=== PATIENT | male | born 1960 | race Caucasian/White ===

== ENCOUNTER → 2017-02-11 | Outpatient (CLI) | payer OTHER ==
[~2017-02-11] MED LIST: AMITRIPTYLINE H25 MG PO; ATORVASTATIN CA10 MG PO; BACLOFEN10 MG PO; GABAPENTIN400 M2 PO; HYDROCODON-ACE1 EAC7 PO; LISINOPRIL2.5 MG PO; LYRICA300 MG PO; METFORMIN HCL1000 M1 PO; METFORMIN HCL500 M1 PO; METFORMIN PO; NEURONTIN800 MG PO; NO MEDS; TRAMADOL HCL50 M2 PO; ZANAFLEX4 M1 PO
--- NOTE | ~2017-02-11 | EKG ---
PATIENT: SANJAY PAEZ UNIT #: [id number] Ventricular Rate: 86 BPM Atrial Rate: 86 BPM P-R Interval: 144 ms QRS Duration: 84 ms Q-T Interval: 378 ms QTC Calculation(Bezet): 452 ms P Rutledge: 14 degrees Calculated R Rutledge: -18 degrees Calculated T Rutledge: 31 degrees Diagnosis Line: Normal sinus rhythm Diagnosis Line: Cannot rule out Inferior infarct , age Diagnosis Line: undetermined Diagnosis Line: Abnormal ECG Diagnosis Line: When compared with ECG of 06-OCT-2012 10:19, Diagnosis Line: Minimal criteria for Inferior infarct are now Diagnosis Line: Present Diagnosis Line: Confirmed by JUAREZ LEACH MD ([id number]) on 02/12/2017 Diagnosis Line: 5:44:24 AM INTERPRETING MD: HANY MICHELLE
[2017-02-11 17:59] LABS: CALCIUM SERUM 9.3 mg/dL (8.4-10.2); CREATININE SERUM 0.7 mg/dL (0.6-1.4); GLOM FILT RATE Estimated 105.5 mL/min (>60); POTASSIUM 4.5 mmol/L (3.5-5.1)
== END | disposition home or self-care (01) ==
LOC: CAMB 13:28
PROVIDERS: Surgery
DX: Z01.818 Encounter for other preprocedural examination (principal); K40.90 Unilateral inguinal hernia, without obstruction or gangrene, not specified as recurrent; R94.31 Abnormal electrocardiogram [ECG] [EKG]
CPT/HCPCS: 36415; 80048; 93005

== ENCOUNTER → 2017-02-18 | Day surgery (SDC) | payer OTHER ==
--- NOTE | ~2017-02-18 | OR ---
Unit #: [id number] #: [id number] Patient: SANJAY PAEZ JR [id number] [address] [place], [place] [address] [id number] O MR#: [id number] NAME: SANJAY PAEZ JR ROOM: Date of Procedure: 02/18/2017 Admission Date: 02/18/2017 Surgeon: Andrew Shields M.D. : 1960 Attending Physician: Andrew Shields M.D. Primary Care Physician: Art Cortés M.D. OPERATIVE REPORT PREOPERATIVE DIAGNOSIS Right inguinal hernia. POSTOPERATIVE DIAGNOSIS Incarcerated indirect right inguinal hernia. PROCEDURE PERFORMED Transabdominal right inguinal hernia repair, laparoscopic. 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 ANESTHESIA General endotracheal anesthesia. ESTIMATED BLOOD LOSS Minimal. IV FLUIDS 800 crystalloid. COMPLICATIONS None. INDICATIONS FOR PROCEDURE The patient is a 56-year-old gentleman, who presents with an incarcerated right inguinal hernia. DESCRIPTION OF PROCEDURE The patient was taken to the operating theater and placed in supine position. General anesthesia was induced. The abdomen was prepped and draped. Infraumbilical incision was then made. A small incision was made in the anterior sheath. I created the preperitoneal space with blunt dissection. I placed a Veress needle intra-abdominally. The abdomen was insufflated to 15 mmHg with CO2. I placed a 5-mm port. The patient was placed in Trendelenburg. I identified a right-sided incarcerated indirect inguinal hernia. There were multiple adhesions from his previous appendectomy incision also. I placed a 5-mm port in the left upper quadrant. I attempted to reduce this, but found that this was intimately adhered to the peritoneum. I was able to reduce most of it, but I toward the peritoneum quite a bit and prohibited me from creating a preperitoneal space. I thus placed a right upper quadrant 5 mm and proceed with a Unit #: [id number] #: [id number] Patient: SANJAY PAEZ JR transabdominal approach. I was able to skeletonize the cord, the hernia sac from the cord contents. This was reduced. I identified the lateral space. The median arcuate ligament was then ligated and identified Kris ligament. I placed a 4 x 6 Ventralight mesh into position. I cut a keyhole in the mesh to around the spermatic cord. Thus, preventing the peritoneum sliding posterior to the mesh. I secured this to Kris ligament and to the anterior lateral musculature. I then re-tacked some of the peritoneum up to the anterior abdominal wall. Hemostasis was adequate. I removed the ports under direct vision and closed the fascia with 0 Vicryl and skin with 4-0 Vicryl. The patient tolerated the procedure well and sent to recovery room in good condition. Dictated by... John Salinas/den TD: 02/18/2017 13:05 JOB #: [id number] OPERATIVE REPORT Page 1 of 1 X Andrew Shields MD X PROCEDURE OPERATIVE NOTE
== END | disposition home or self-care (01) ==
LOC: CSUR 08:23
DX: K40.30 Unilateral inguinal hernia, with obstruction, without gangrene, not specified as recurrent (principal); K66.0 Peritoneal adhesions (postprocedural) (postinfection); I10 Essential (primary) hypertension; E11.9 Type 2 diabetes mellitus without complications; E78.5 Hyperlipidemia, unspecified; F17.210 Nicotine dependence, cigarettes, uncomplicated; Z88.8 Allergy status to other drugs, medicaments and biological substances; Z91.013 Allergy to seafood; Z79.84 Long term (current) use of oral hypoglycemic drugs; Z79.891 Long term (current) use of opiate analgesic; Z79.899 Other long term (current) drug therapy; Z90.49 Acquired absence of other specified parts of digestive tract; Z98.890 Other specified postprocedural states
CPT/HCPCS: 82947; C1781; J0330; J0690; J1170; J1644; J1885; J2250; J3010

== ENCOUNTER → 2017-03-25 | Outpatient (CLI) | payer OTHER ==
[2017-03-25 14:23] LABS: CALCIUM SERUM 9.5 mg/dL (8.4-10.2); CREATININE SERUM 0.8 mg/dL (0.6-1.4); GLOM FILT RATE Estimated 99.2 mL/min (>60); POTASSIUM 4.8 mmol/L (3.5-5.1)
== END | disposition home or self-care (01) ==
LOC: CAMB 12:34
PROVIDERS: Surgery
DX: Z01.812 Encounter for preprocedural laboratory examination (principal)
CPT/HCPCS: 36415; 80048

== ENCOUNTER → 2017-04-01 | Day surgery (SDC) | payer OTHER ==
--- NOTE | ~2017-04-01 | OR ---
Unit #: [id number] #: [id number] Patient: SANJAY PAEZ JR AND [id number] [address] [address] [id number] O MR#: [id number] NAME: JOSÉ MANUEL PAEZ JR ROOM: Date of Procedure: 04/01/2017 Admission Date: 04/01/2017 Surgeon: Andrew Shields M.D. : 1960 Attending Physician: Andrew Shields M.D. Primary Care Physician: Art Cortés M.D. OPERATIVE REPORT PREOPERATIVE DIAGNOSIS Chronic recurrent sebaceous cyst, mid back. POSTOPERATIVE DIAGNOSIS Chronic recurrent sebaceous cyst, mid back. PROCEDURE PERFORMED Excision of chronic recurrent sebaceous cyst. ANESTHESIA IV sedation with local anesthetic. COMPLICATIONS None. INDICATIONS FOR PROCEDURE The patient is a 57-year-old gentleman, who presents with multiple recurrent infected sebaceous cyst. He presents for excision. DESCRIPTION OF PROCEDURE The patient was taken to the operating theater and placed in a left lateral decubitus position. IV sedation was initiated. The back was then prepped and draped. I then injected with 1% lidocaine with epinephrine. Elliptical incision was then made inclusive of the lesion measuring 4 cm x 2 cm. This was taken down to the muscle fascia inclusive of the cyst itself. I then gained hemostasis with Bovie electrocautery. I closed with interrupted 3-0 nylon suture. The patient tolerated the procedure well and sent to recovery room in good condition. Dictated by... Andrew Shields M.D. JNO/patriciol TD: 04/01/2017 15:33 JOB #: [id number] Unit #: [id number] #: [id number] Patient: SANJAY PAEZ JR AND OPERATIVE REPORT Page 1 of 1 X Andrew Shields MD PROCEDURE OPERATIVE NOTE
== END | disposition home or self-care (01) ==
LOC: CSUR 07:09
DX: L72.0 Epidermal cyst (principal); E11.9 Type 2 diabetes mellitus without complications; I10 Essential (primary) hypertension; E78.5 Hyperlipidemia, unspecified; F17.210 Nicotine dependence, cigarettes, uncomplicated; Z87.442 Personal history of urinary calculi; Z90.89 Acquired absence of other organs; Z88.8 Allergy status to other drugs, medicaments and biological substances; Z79.84 Long term (current) use of oral hypoglycemic drugs; Z79.899 Other long term (current) drug therapy; Z98.1 Arthrodesis status
CPT/HCPCS: 82947; 88304; J0690; J2250; J3010